=== PATIENT | female | born 2000 | race Caucasian/White ===

== ENCOUNTER 2024-07-22 10:02 | Emergency (ER) | payer SELFPAY ==
[~2024-07-22] VITALS: Ht 147.3 cm; Wt 54.0 kg
[2024-07-22 10:28] VITALS: O2SAT 99
[2024-07-22 10:50] LABS: CLARITY URINE TURBID (CLEAR); COLOR URINE YELLOW (YELLOW); GLUCOSE URINE NEGATIVE (NEGATIVE); KETONES URINE NEGATIVE (NEGATIVE); LEUKOCYTE ESTERASE URINE NEGATIVE (NEGATIVE); NITRITE URINE NEGATIVE (NEGATIVE); OCCULT BLOOD URINE NEGATIVE (NEGATIVE); PH URINE 7.5 (4.5-8.0); PROTEIN URINE NEGATIVE (NEGATIVE)
[2024-07-22 11:08] LABS: AMORPHOUS SEDIMENT URINE 4+ /lpf; BACTERIA URINE 2+; RBC URINE NONE SEEN /hpf (0-2); SQUAMOUS EPITHELIAL CELL URINE FEW /lpf (RARE/1+); WBC URINE 0-2 /hpf (0-2); YEAST URINE NONE SEEN
[2024-07-22 11:59] LABS: BASOPHILS % 0.5 % (0.0-2.0); EOSINOPHILS % 0.5 % (0.0-5.0); HEMATOCRIT. 32.2 % (36.0-48.0); HEMOGLOBIN. 11.5 g/dL (12.0-16.0); LYMPHOCYTES % 20.7 % (20.0-50.0); MEAN CORPUSCULAR HEMOGLOBIN 31.4 pg (28.0-32.0); MEAN CORPUSCULAR HGB CONC 35.6 g/dL (31.0-37.0); MEAN CORPUSCULAR VOLUME 88.1 fL (81.0-99.0); MEAN PLATELET VOLUME 8.4 fl (7.4-10.4); MONOCYTES % 5.4 % (2.0-8.0); NEUTROPHILS % 72.9 % (40.0-76.0); PLATELET 236 x1000/uL (130-400); RED BLOOD CELL COUNT 3.65 mill/uL (4.2-5.4); WHITE BLOOD COUNT 8.8 x1000/uL (4.5-11.0)
[2024-07-22 12:07] LABS: CHLORIDE 105 mEq/L (98-107); POTASSIUM 3.9 mEq/L (3.5-5.1); SODIUM 138 mEq/L (136-145)
[2024-07-22 12:08] LABS: CALCIUM 9.5 mg/dL (8.7-10.4); CARBON DIOXIDE 25 mEq/L (21-32)
[2024-07-22 12:13] LABS: CREATININE 0.5 mg/dL (0.6-1.0); GLUCOSE 84 mg/dL (70-105)
[2024-07-22 12:15] LABS: ALANINE AMINOTRANSFERASE 15 IU/L (10-49); ALBUMIN 4.1 g/dL (3.2-4.8); ASPARTATE AMINOTRANSFERASE 19 IU/L (<34); BILIRUBIN TOTAL 0.4 mg/dL (0.1-1.0); PROTEIN TOTAL 6.6 g/dL (6.0-8.3)
[2024-07-22 12:59] LABS: B-HCG QUANTITATIVE 98526 mIU/mL (<3); BILIRUBIN DIRECT < 0.1 mg/dL (<=3.0); UREA NITROGEN BLOOD < 5 mg/dL (9-23)
[2024-07-22] MEDS ORDERED: CEPH500T MT (13:02)
[2024-07-22] MEDS ORDERED: PREN-118 MT (13:12)
[2024-07-22 13:13] VITALS: BP 138/84; PULSE 99; RESP 16; TEMP 36.83628; O2SAT 99
== END 2024-07-22 13:04 | disposition home or self-care (01) ==
LOC: ER 10:14
DX: O23.32 Infections of other parts of urinary tract in pregnancy, second trimester (principal); R10.2 Pelvic and perineal pain; Z3A.15 15 weeks gestation of pregnancy
CPT/HCPCS: 36415; 76805; 80048; 80076; 81003; 81025; 84702; 85025; 86850; 86900; 99284